=== PATIENT | female | born 1950 | race Two or more races ===

== ENCOUNTER 2024-06-04 01:27 | Emergency (ER) | payer OTHER ==
[~2024-06-04] VITALS: Ht 162.6 cm; Wt 99.8 kg
[2024-06-04 01:46] VITALS: BP 145/80; O2SAT 96
[2024-06-04] MEDS ORDERED: BUDESONIDE 0.5 MG/2 ML AMPUL.NEB IH STA (02:29)
[2024-06-04] MEDS ORDERED: GUAIFENESIN 200 MG/10 ML BLIST.PACK PO STA (02:29)
[2024-06-04] MEDS ORDERED: ALBUTEROL SULFATE 3 ML/2.5 MG AMPUL.NEB IH SCH (02:30)
[2024-06-04] MEDS ORDERED: BUDESONIDE 0.5 MG/2 ML AMPUL.NEB IH ONE (02:36)
[2024-06-04] MEDS ORDERED: ALBUTEROL SULFATE 3 ML/2.5 MG AMPUL.NEB IH ONE (02:36)
[2024-06-04] MEDS ORDERED: GUAIFENESIN 200 MG/10 ML BLIST.PACK PO ONE (02:48)
[2024-06-04] MEDS ORDERED: ALBUTEROL2.5 MG/3 M IH (04:31)
[2024-06-04] MEDS ORDERED: BUDESONIDE0.5 MG/2 M IH (04:31)
[2024-06-04] MEDS ORDERED: ZYNCOF 20-400120 ML PO (04:31)
== END 2024-06-04 06:05 ==
LOC: ER 01:27
DX: J98.01 Acute bronchospasm (principal); T59.811A Toxic effect of smoke, accidental (unintentional), initial encounter; I10 Essential (primary) hypertension; E11.9 Type 2 diabetes mellitus without complications; Z88.2 Allergy status to sulfonamides